=== PATIENT | female | born 1985 | race Two or more races ===

== ENCOUNTER 2024-09-08 12:53 | Emergency (ER) | payer MEDICAID, SELFPAY ==
[2024-09-08 13:04] VITALS: BP 141/86; PULSE 90; RESP 19; TEMP 37.2; O2SAT 96; BMI 43.3
--- NOTE | 2024-09-08 13:06 | XR_ITS ---
Examination: AP chest single view Technique one AP portable upright chest single view Exam date and time: September 08, 2024 at 1322 hours COMPARISON: August 21, 2013 INDICATIONS: Shortness of breath today. FINDINGS: Minimal prominence left ventricle Accentuation interstitial markings at the lung bases The osseous structures are mildly demineralized IMPRESSION: Basilar bronchitis pattern
--- NOTE | 2024-09-08 13:06 | EKG_ITS ---
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1985 Requested By: Jaspreet Wright Order Number: [id number] Reading MD: Jaspreet Wright Measurements Intervals [place] Rate: 84 P: 57 MO: 170 QRS: -22 QRSD: 71 T: 38 QT: 349 QTc: 414 Interpretive Statements SINUS RHYTHM LOW QRS VOLTAGE IN PRECORDIAL LEADS [QRS DEFLECTION < 1.0 mV IN CHEST LEADS] POSSIBLE ANTERIOR MYOCARDIAL INFARCTION , PROBABLY OLD [30 ms Q WAVE IN V3/V4, OR R < 0.2 mV IN V4] INFERIOR MYOCARDIAL INFARCTION , PROBABLY OLD [40+ ms Q WAVE AND/OR ST/T ABNORMALITY IN II/aVF] Compared to ECG 10/22/2018 20:46:36 Low QRS voltage now present Myocardial infarct finding now present /store/S0/[id number]/ecg/[id number].pdf
[2024-09-08] MEDS: predniSONE 20 MG TABLET 40 MG PO (13:37)
[2024-09-08] MEDS: ALBUTEROL/IPRATROPIUM (Duoneb) RT SOL 3 ML NEBU INH (13:38)
--- NOTE | 2024-09-08 13:38 | PD.EDSOB ---
ED SOB =RME/HPI General Chief Complaint: Shortness of Breath/Dyspnea Stated Complaint: COUGH, SOB, BACK PAIN Time Seen by Provider: 09/08/24 13:01 Arrival date/time: 09/08/24 12:53 RME / HPI RME / HPI Narrative: This section includes all my notes and documentations, including HPI, PE, and ED course. Jaspreet Good MD HPI: 38-year-old female here with about a week history of worsening cough, productive cough, purulent sputum, and dyspnea. No fever. No chest pain. No other complaints ROS: All negative except as documented in HPI. Physical Exam: General: Alert and oriented. Hacking cough noted. Eyes: Conjunctivae and lids clear. ENT: No nasal congestion. Pharynx normal. TM normal bilaterally. Neck: Supple. Heart: RRR. Lungs: No respiratory distress. Good air movement with bilateral rhonchi. Skin: Warm and dry. Neuro: Alert and oriented X 3. I reviewed all diagnostic test results. My interpretation of the EKG is sinus rhythm with nonspecific ST?T changes. My interpretation of the chest x-ray is increased bronchial markings. COVID/influenza negative. At this point, diagnoses include lower respiratory infection. Treatment here included prednisone and DuoNeb and Zithromax. Significant improvement noted. Recommended a trial of treatment at home. Based on my best medical judgment, made decision no further evaluation or treatment indicated at this time. Patient understands and agrees to the discharge instructions customized and printed, see below. Discharge instructions from Dr. Good: --No physical exertion for 3 days to help rest the lungs. ?-No smoking or exposure to smoking or pets or dust or cold or humidity. --Zithromax to kill the germs causing the bronchitis. --Prednisone to help decrease the swelling in the airways. --Albuterol 2 puffs every 4-6 hours as needed for cough or shortness of breath. --See a private doctor on 09/12/2024 if not completely better. --Seek immediate medical care with worsening or with any concerns. Jaspreet Good MD Related Data Home Medications ?Medication ?Instructions ?Recorded ?Confirmed paroxetine HCl 30 mg tablet 30 mg PO QDAY 08/30/23 08/30/23 Previous Rx's ?Medication ?Instructions ?Recorded albuterol sulfate 90 mcg/actuation 2 inh inhalation QID PRN shortness 09/08/24 aerosol inhaler of breath or wheezing #8.5 grams azithromycin 500 mg tablet 500 mg PO QDAY 3 days #3 tabs 09/08/24 (Zithromax TRI-ISADORA) prednisone 20 mg tablet 40 mg PO DAILY 3 days #6 tabs 09/08/24 Allergies Allergy/AdvReac Type Severity Reaction Status Date / Time No Known Allergies Allergy Verified 09/08/24 12:57 Course Quality Measures none Orders Category Date Time Status Bedside COVID-19 Antigen Test NOW Care 09/08/24 13:06 Active Bedside Influenza A&B Antigen Test NOW Care 09/08/24 13:06 Completed EKG (ED ONLY) *Do not use* NOW Care 09/08/24 13:06 Completed EKG (ED Only) Stat Exams 09/08/24 13:06 Draft XR chest 1V portable Stat Exams 09/08/24 13:06 Completed Strep A Rapid Stat Lab 09/08/24 13:06 Ordered Albuterol/Ipratr Rt Maggie [Duoneb Rt Maggie] Med 09/08/24 13:05 Discontinued 3 ml INH X1 ONE Azithromycin Po [Zithromax PO] Med 09/08/24 14:33 Discontinued 500 mg PO X1 ONE predniSONE Med 09/08/24 13:05 Discontinued 40 mg PO X1 ONE Vital Signs Vital signs: Vital Signs Temperature 99.0 F 09/08/24 13:04 Pulse Rate 90 09/08/24 13:04 Respiratory Rate 19 09/08/24 13:04 Blood Pressure 141/86 H 09/08/24 13:04 Pulse Oximetry (%) 96 09/08/24 13:04 Oxygen Delivery Method Room Air 09/08/24 13:04 Shortness of Breath / Dyspnea Patient data External records reviewed:: [facility] previous records Clinical information provided by:: patient and spouse Social determinants that could affect healthcare access:: none Patient has the following chronic illnesses:: None How is presenting disease/condition affected by chronic disease/condition?: no chronic disease Evaluation data The following diagnostics were reviewed and interpreted by me:: lab results, radiology exam(s) and EKG tracing(s) (My interpretation of the EKG is: Sinus rhythm (61 bpm) with nonspecific ST-T changes. Jaspreet Good MD) Lab and/or radiology exams considered but not ordered:: None Interpretation Summary: Lower respiratory infection Medications / Prescriptions Medications or Prescriptions considered but not ordered:: None Medication administrations:: Medication Administration History Discontinued Medications Albuterol/Ipratropium (Albuterol/Ipratropium (Duoneb) Rt Maggie 3 Ml Nebu) 3 ml INH X1 ONE Stop: 09/08/24 13:06 Last Admin: 09/08/24 13:38 Dose: 3 ml Documented By: ADORE Azithromycin (Azithromycin 250 Mg Tablet) 500 mg PO X1 ONE Stop: 09/08/24 14:34 Prednisone (Prednisone 20 Mg Tablet) 40 mg PO X1 ONE Stop: 09/08/24 13:06 Last Admin: 09/08/24 13:37 Dose: 40 mg Documented By: MYRANDA Prednisone and Zithromax and DuoNeb Consultations Consultation(s) initiated? (list below): No Diagnosis Shortness of Breath Differential Diagnosis: acute exacerbation of chronic obstructive airways disease, congestive heart failure, community acquired pneumonia, asthma with exacerbation and other (Bronchitis, lower respiratory infection) Most likely diagnosis given after review of the tests above:: Lower respiratory infection Admission Indicated Admission indicated?: not indicated Explain why admission is indicated or not indicated:: Admission criteria not met Admission Request Was there a request for admission?: No Disposition Plan Disposition Plan: Discharge Discharge Attestation Discharge Attestation: The patient and all family members were given an opportunity to ask questions and understood the discharge instructions. Discharge instructions specifically effects, indications for sooner follow up or return to the emergency department, and the expected course of current diagnosis. Patient condition: Stable Discharge Plan Plan Patient Disposition: HOME (Self Care) Prescriptions/Referrals Prescriptions/Med Rec: New prednisone 20 mg tablet 40 mg PO DAILY 3 Days Qty: 6 0RF Taper: Prednisone Taper 20 mg DAILY for 2 Days and 0 Hour 10 mg DAILY for 2 Days and 0 Hour 5 mg DAILY for 7 Days and 0 Hour albuterol sulfate 90 mcg/actuation HFA aerosol inhaler 2 inh inhalation QID PRN (Reason: shortness of breath or wheezing) Qty: 8.5 0RF azithromycin [Zithromax TRI-ISADORA] 500 mg tablet 500 mg PO QDAY 3 Days Qty: 3 0RF No Action paroxetine HCl 30 mg tablet 30 mg PO QDAY Problem List Clinical Impression: Lower respiratory infection Patient/Caregiver Discharge Instructions Discharge Activity: activity as tolerated Additional Instructions: Discharge instructions from Dr. Good: --No physical exertion for 3 days to help rest the lungs. ?-No smoking or exposure to smoking or pets or dust or cold or humidity. --Zithromax to kill the germs causing the bronchitis. --Prednisone to help decrease the swelling in the airways. --Albuterol 2 puffs every 4-6 hours as needed for cough or shortness of breath. --See a private doctor on 09/12/2024 if not completely better. --Seek immediate medical care with worsening or with any concerns. Print Language: [place] Stand Alone Forms: Shannan Award Info., Patient Portal Info Letter
[2024-09-08 13:40] VITALS: PULSE 85; RESP 18; O2SAT 99
[2024-09-08] MEDS: AZITHROMYCIN 250 MG TABLET 500 MG PO (14:43)
== END 2024-09-08 14:46 | disposition home or self-care (01) ==
LOC: SERX 14:52
PROVIDERS: Emergency Provider Emergency Medicine; PCP Family Medicine
DX: J22 Unspecified acute lower respiratory infection (principal); R94.31 Abnormal electrocardiogram [ECG] [EKG]
CPT/HCPCS: 71045; 87400; 87651; 87811; 93005; 94640; 99283; A9270; J7512